=== PATIENT | female | born 1960 | race Caucasian/White ===

== ENCOUNTER 2019-06-08 06:06 | Day surgery (SDC) | payer BC, OTHER ==
[2019-05-27 12:38] VITALS: BMI 23.2
[2019-06-08] MEDS ORDERED: TROPICAMIDE 1% OPHTH SOLN 15 ML BOTTLE ONE (06:11)
[2019-06-08] MEDS ORDERED: PHENYLEPHRINE 2.5% OPHTH SOLN 15 ML BOTTLE ONE (06:11)
[2019-06-08] MEDS ORDERED: CYCLOPENTOLATE HCL 1% OPHTH SOLN 2 ML BOTTLE ONE (06:11)
[2019-06-08] MEDS ORDERED: KETOROLAC TROMETHAMINE 0.5% EYE DROP 1 DROP DROPS ONE (06:11)
[2019-06-08] MEDS ORDERED: OFLOXACIN 0.3% OPHTHALMIC SOLUTION 5 ML BOTTLE ONE (06:11)
[2019-06-08] MEDS: PHENYLEPHRINE 2.5% OPHTH SOLN 15 ML BOTTLE OD SCH ×5 (06:30→06:50)
[2019-06-08] MEDS: CYCLOPENTOLATE HCL 1% OPHTH SOLN 2 ML BOTTLE OD SCH ×5 (06:30→06:50)
[2019-06-08] MEDS: OFLOXACIN 0.3% OPHTHALMIC SOLUTION 5 ML BOTTLE OD SCH ×5 (06:30→06:50)
[2019-06-08] MEDS: KETOROLAC TROMETHAMINE 0.5% EYE DROP 1 DROP DROPS OD SCH ×5 (06:30→06:50)
[2019-06-08] MEDS: TROPICAMIDE 1% OPHTH SOLN 15 ML BOTTLE OD SCH ×5 (06:30→06:50)
[2019-06-08 06:35] VITALS: TEMP 98.3
[2019-06-08] MEDS ORDERED: BETAXOLOL HCL 0.25% OPHTHALMIC 10 ML DROPSBTL ONE (07:11)
[2019-06-08] MEDS ORDERED: EPINEPHrine/PF 1 MG/1 ML (1:1,000) AMPULE ONE (07:11)
[2019-06-08] MEDS ORDERED: EPI-SHUGARCAINE (EPINEPHRINE 0.025% & LIDOCAINE-PF 0.75%) 4ML ONE (07:11)
[2019-06-08] MEDS ORDERED: BACITRACIN/POLYMYXIN OPH OINT 3.5 GM TUBE ONE (07:11)
[2019-06-08] MEDS ORDERED: TETRACAINE 0.5% OPHTH SOLN 2 ML BOTTLE ONE (07:12)
[2019-06-08] MEDS ORDERED: POVIDONE-IODINE 5% OPHTHALMIC PREP 30 ML SOLUTION ONE (07:12)
[2019-06-08] MEDS ORDERED: ACETYLCHOLINE 1:100 INTRA-OCUL 20 MG/2 ML KIT ONE (07:13)
[2019-06-08] MEDS ORDERED: NEO/POLYMYX B SULF/DEXAMETH OPHTHALMIC 5ML BOTTLE ONE (07:13)
[2019-06-08] MEDS ORDERED: MIDAZOLAM HCL 2 MG/2 ML SINGLE DOSE VIAL ONE (07:26)
[2019-06-08] MEDS ORDERED: ONDANSETRON 4 MG/2 ML VIAL ONE (08:09)
[2019-06-08] MEDS ORDERED: ACETAMINOPHEN 325 MG TABLET (FP) PO PRN (08:58)
[2019-06-08 09:28] VITALS: BP 104/69; PULSE 51
--- NOTE | 2019-06-08 10:43 | OP ---
DATE OF OPERATION: 06/08/2019 PREOPERATIVE DIAGNOSIS: Cataract, right eye. POSTOPERATIVE DIAGNOSIS: Cataract, right eye. PROCEDURE: Cataract extraction via phacoemulsification with insertion of posterior chamber lens implant, right eye. SURGEON: Gibran Rubio MD POST DOCTORAL FELLOW: She Lambert MD ANESTHESIA: Topical with sedation. ESTIMATED BLOOD LOSS: Less than 1 mL. COMPLICATIONS: None. SPECIMENS: None. Toric multifocal lens implant. DESCRIPTION OF PROCEDURE: The patient was identified in the holding area. After all risks, benefits, and alternatives were explained to the patient, informed consent was obtained. The right eye was marked with a marking pen. The patient then entered the operating room on an eye stretcher. After a formal time-out was performed, topical tetracaine eye drops were instilled onto the right eye. The right eye was then prepped and draped in the usual sterile fashion. An eyelid speculum was placed beneath the eyelid of the right eye. Before the eye was prepped and draped, the patient was instructed to sit up and look straight ahead, and the cardinal axis of astigmatism were marked under the cornea using a Toric bubble marker and a Toric marking pen. The patient was then asked to sit down, and again, the right eye was prepped and draped in the usual sterile fashion. After the eyelid speculum was placed again beneath the eyelid, the axis of astigmatism was marked onto the cornea, which was noted to be between 95-100 degrees. That was done using a Toric dial and a Toric marking pen. Then a superotemporal paracentesis incision was created using a 15-degree blade. Topical preservative-free epinephrine and preservative-free lidocaine was then injected into the anterior chamber. Viscoelastic was then injected into the anterior chamber. A 2.4-mm keratome blade was then used to make an infratemporal incision. A 360-degree continuous curvilinear capsulorrhexis was then created using bent cystotome and Utrata forceps. Hydrodissection was performed using balanced saline solution on a cannula. Phacoemulsification was introduced to disassemble and remove the nucleus in its entirety. Irrigation/aspiration was then used to remove any remaining cortical material from the eye. The capsular bag was reformed using viscoelastic. An Mir Model TFNT30 with a power of 12.5 diopter serial number [id number] was inspected and found to be defect free and injected into the capsular bag. Irrigation/aspiration was then used to remove any remaining viscoelastic from the eye especially posterior to the optic. Then the intraocular lens was rotated so that the axis of astigmatism on the optic matched the axis of astigmatism on the cornea, which was noted to be about 97 degrees. Then irrigation/aspiration was then used to remove any remaining debris from the eye and then all wounds were hydrated with balanced saline solution and noted to be watertight. The patient was then instructed to look at the microscope light, and the Purkinje images were observed, and the intraocular lens was centered so that the central ring fell within the center of the Purkinje images. Once the lens was perfectly centered in the capsular bag with the axis of astigmatism at about 97 degrees, it was noted that the anterior chamber was deep. All wounds were watertight. The lens was perfectly centered. There was a red reflex present, and the eye had adequate pressure. Topical antibiotic eyedrops and ointment were then administered to the right eye. The eyelid speculum was removed from the right eye. The right eye was shielded. The patient tolerated the procedure well. Left the operating room in stable condition to follow up in the eye clinic tomorrow morning at 10 o'clock. Jackeline [id number]
== END 2019-06-08 09:30 | disposition home or self-care (01) ==
LOC: FASU 06:06
PROVIDERS: ATTEND Ophthalmology
PROC: 08RJ3JZ Replacement of Right Lens with Synthetic Substitute, Percutaneous Approach (ICD-10-PCS; principal; 2019-06-08 08:07)
DX: H26.9 Unspecified cataract (principal)

== ENCOUNTER 2019-06-15 06:12 | Day surgery (SDC) | payer BC, OTHER ==
[2019-06-10 12:17] VITALS: BMI 23.2
[2019-06-15] MEDS ORDERED: PHENYLEPHRINE 2.5% OPHTH SOLN 15 ML BOTTLE ONE (06:29)
[2019-06-15] MEDS ORDERED: KETOROLAC TROMETHAMINE 0.5% EYE DROP 1 DROP DROPS ONE (06:29)
[2019-06-15] MEDS ORDERED: OFLOXACIN 0.3% OPHTHALMIC SOLUTION 5 ML BOTTLE ONE (06:29)
[2019-06-15] MEDS ORDERED: CYCLOPENTOLATE HCL 1% OPHTH SOLN 2 ML BOTTLE ONE (06:29)
[2019-06-15] MEDS ORDERED: TROPICAMIDE 1% OPHTH SOLN 15 ML BOTTLE ONE (06:29)
[2019-06-15] MEDS: TROPICAMIDE 1% OPHTH SOLN 15 ML BOTTLE OS SCH ×5 (06:35→06:55)
[2019-06-15] MEDS: OFLOXACIN 0.3% OPHTHALMIC SOLUTION 5 ML BOTTLE OS SCH ×5 (06:35→06:55)
[2019-06-15] MEDS: CYCLOPENTOLATE HCL 1% OPHTH SOLN 2 ML BOTTLE OS SCH ×5 (06:35→06:55)
[2019-06-15] MEDS: KETOROLAC TROMETHAMINE 0.5% EYE DROP 1 DROP DROPS OS SCH ×5 (06:35→06:55)
[2019-06-15] MEDS: PHENYLEPHRINE 2.5% OPHTH SOLN 15 ML BOTTLE OS SCH ×5 (06:35→06:55)
[2019-06-15] MEDS ORDERED: MIDAZOLAM HCL 2 MG/2 ML SINGLE DOSE VIAL ONE (07:03)
[2019-06-15] MEDS ORDERED: ACETAMINOPHEN 325 MG TABLET (FP) PO PRN ×2 (07:10→08:50)
[2019-06-15] MEDS ORDERED: oxyCODONE HCL 5 MG TABLET PO PRN (07:10)
[2019-06-15] MEDS ORDERED: ONDANSETRON 4 MG/2 ML VIAL IVPUSH PRN (07:10)
[2019-06-15] MEDS ORDERED: BACITRACIN/POLYMYXIN OPH OINT 3.5 GM TUBE ONE (07:22)
[2019-06-15] MEDS ORDERED: BETAXOLOL HCL 0.25% OPHTHALMIC 10 ML DROPSBTL ONE (07:22)
[2019-06-15] MEDS ORDERED: EPI-SHUGARCAINE (EPINEPHRINE 0.025% & LIDOCAINE-PF 0.75%) 4ML ONE (07:23)
[2019-06-15] MEDS ORDERED: ACETYLCHOLINE 1:100 INTRA-OCUL 20 MG/2 ML KIT ONE (07:23)
[2019-06-15] MEDS ORDERED: POVIDONE-IODINE 5% OPHTHALMIC PREP 30 ML SOLUTION ONE (07:23)
[2019-06-15] MEDS ORDERED: TETRACAINE 0.5% OPHTH SOLN 2 ML BOTTLE ONE (07:23)
[2019-06-15] MEDS ORDERED: EPINEPHrine/PF 1 MG/1 ML (1:1,000) AMPULE ONE (07:24)
[2019-06-15] MEDS ORDERED: NEO/POLYMYX B SULF/DEXAMETH OPHTHALMIC 5ML BOTTLE ONE (07:24)
[2019-06-15] MEDS ORDERED: SUCCINYLCHOLINE CHLORIDE 200 MG/10 ML SYRINGE ONE (07:53)
[2019-06-15 09:02] VITALS: TEMP 98.4
[2019-06-15 09:26] VITALS: BP 91/60; PULSE 54
--- NOTE | 2019-06-15 12:27 | OP ---
DATE OF OPERATION: 06/15/2019 PREOPERATIVE DIAGNOSIS: Cataract, left eye. POSTOPERATIVE DIAGNOSIS: Cataract, left eye. PROCEDURE: Cataract extraction via phacoemulsification with insertion of posterior chamber lens implant, left eye. SURGEON: Gibran Rubio MD ANALOG DESIGN ENGINEER: She Lambert MD ANESTHESIA: Topical with sedation. ESTIMATED BLOOD LOSS: Less than 1 mL. COMPLICATIONS: None. SPECIMENS: None. DESCRIPTION OF PROCEDURE: The patient was identified in the holding area. After all risks, benefits, and alternatives were explained to the patient, informed consent was obtained. The left eye was marked with a marking pen. The patient then entered the operating room on an eye stretcher. After a formal time-out was performed, topical tetracaine eye drops were instilled onto the left eye. The patient was instructed to sit up and look straight ahead, and the cardinal axes of astigmatism were marked using a Toric bubble marker and a Toric marking pen. Then the patient was asked to lay back down, and the left eye was prepped and draped in the usual sterile fashion. An eyelid speculum was placed beneath the eyelids of the left eye. An inferotemporal paracentesis incision was created using a 15-degree blade. Topical preservative-free epinephrine and preservative-free lidocaine was then injected into the anterior chamber. Of note, before the incision was made, the axis of astigmatism was marked onto the cornea using a Toric dial and a Toric marking pen, which was noted to be 100 degrees. Then viscoelastic was injected into the anterior chamber. A 2.4-mm keratome blade was then used to make a superotemporal incision. A 360-degree continuous curvilinear capsulorrhexis was then created using bent cystotome and Utrata forceps. Hydrodissection was performed using balanced saline solution on a cannula. Phacoemulsification was introduced to disassemble and remove the nucleus in its entirety. Irrigation/aspiration was then used to remove any remaining cortical material from the eye. The capsular bag was reformed using viscoelastic. An Mir Model TFNT30 with a power of 13.0 diopter serial number [id number] was inspected and found to be defect free and injected into the capsular bag. Irrigation/aspiration was then used to remove any remaining viscoelastic from the eye. The intraocular lens was rotated so that the axis of astigmatism on the lens match the axis of astigmatism on the cornea, which was noted to be 100 degrees. Then, irrigation/aspiration was then used to remove any removing debris from the eye. All wounds were hydrated with balanced saline solution and noted to be watertight. Then the lens was confirmed to be completely and exactly centered by asking the patient to look at the microscope lights and observing the Purkinje reflexes from the lens. After it was confirmed that the Purkinje reflexes lay in the central part of the intraocular lens, topical antibiotic eyedrops and ointment were then administered. Before that, it was confirmed that there was a red reflex present, the anterior chamber was deep, the eye had adequate pressure, and the lens, again, was perfectly centered with the axis of astigmatism at 100 degrees. The eyelid speculum was removed from the left eye. The left eye was shielded. The patient tolerated the procedure well. Left the operating room in stable condition to follow up in the eye clinic tomorrow morning at 10 o'clock. Jackeline [id number]
== END 2019-06-15 09:25 | disposition home or self-care (01) ==
LOC: FASU 06:12
PROVIDERS: ATTEND Ophthalmology
PROC: 08RK3JZ Replacement of Left Lens with Synthetic Substitute, Percutaneous Approach (ICD-10-PCS; principal; 2019-06-15 08:07)
DX: H26.9 Unspecified cataract (principal)